=== PATIENT | female | born 1940 | race Caucasian/White ===

== ENCOUNTER 2016-09-28 10:33 | Emergency (ER) | payer MEDICARE, BC ==
[2016-09-28 12:34] LABS: PTT 27.3 SEC (22.9-36.1); Prothrombin Time 13.6 SEC (12.0-14.7)
[2016-09-28 12:35] LABS: #Basophils 0.1 thou/uL (0.0-0.2); #Eosinphils 0.1 thou/uL (0.0-0.7); #Lymphocytes 1.7 thou/uL (1.20-3.40); #Monocytes 0.8 thou/uL (0.11-0.59); #Neutrophils 9.5 thou/uL (1.40-6.50); %Basophils 0.7 % (0.0-1.0); %Eosinophils 0.8 % (0.0-10.0); %Monocytes 6.4 % (0.0-10.0); %Neutrophils 78.1 % (42.0-75.0); D-Dimer Test 0.64 *mcg/mL (0.27-0.43); Hemoglobin 13.6 g/dL (12.0-16.0); Mean Corpuscular HGB CONC 34.5 g/dL (32.0-36.0); Mean Corpuscular Hemoglobin 31.9 pg (27.0-31.0); Mean Corpuscular Volume 92.5 fl (81.0-99.0); Mean Platelet Volume 7.6 fL (7.4-10.4); Platelet Count 315 thou/uL (130-400); RBC Distribution Width 12.4 % (11.5-14.5); Red Blood Cell (RBC) Count 4.25 mill/uL (4.20-5.40); White Blood Cell (WBC) Count 12.1 thou/uL (4.8-10.8)
[2016-09-28 12:43] LABS: ALT (SGPT) 25 U/L (0-55); AST (SGOT) 27 U/L (5-34); Albumin 3.9 g/dL (3.4-4.8); Alkaline Phosphatase 86 U/L (40-150); Anion Gap 15 mmol/L (10-20); BUN (Urea Nitrogen) 18 mg/dL (9.8-20.1); Bilirubin, Total 1.2 mg/dL (0.2-1.2); Calc. Creatinine Clearance 0 mL/min (70-130); Calcium 9.2 mg/dL (7.8-10.44); Carbon Dioxide 26 mmol/L (23-31); Chloride 102 mmol/L (98-107); Estimated GFR-MDRD 78; Globulin 2.7 g/dL (2.4-3.5); Glucose 136 mg/dL (83-110); Potassium 3.9 mmol/L (3.5-5.1); Protein, Total 6.6 g/dL (5.8-8.1); Sodium 139 mmol/L (136-145)
[2016-09-28 13:05] LABS: CKMB 4.4 ng/mL (0-6.6)
[2016-09-28 13:22] LABS: Troponin I 1.866 ng/mL (< 0.028)
--- NOTE | 2016-09-28 13:44 | RAD ---
UPRIGHT PORTABLE CHEST 1 VIEW: Date: 09/28/16 HISTORY: 76-year-old female with dyspnea. COMPARISON: None. FINDINGS: There is cardiomegaly with bilateral vascular congestion and interstitial edema and pleural effusion , evidence for congestive heart failure. Surgical clips in the left axilla. IMPRESSION: Evidence for congestive heart failure, cardiomegaly, vascular congestion, minimal bilateral intersti tial edema, and small pleural effusions. POS: [facility]
== END 2016-09-28 14:00 | disposition short-term general hospital (02) ==
LOC: MADERS 10:33
DX: I50.9 Heart failure, unspecified (principal); I48.91 Unspecified atrial fibrillation; Z86.73 Personal history of transient ischemic attack (TIA), and cerebral infarction without residual deficits
CPT/HCPCS: 36415; 71010; 80053; 82553; 83880; 84484; 85025; 85379; 85610; 85730; 93005